=== PATIENT | female | born 1975 | race Hispanic/Latino ===

== ENCOUNTER 2018-12-04 12:37 | Emergency (ER) | payer OTHER ==
[2018-12-04] MEDS ORDERED: IPRATROPIUM/ALBUTEROL SULFATE 3 ML SOLUTION IH ONE (13:14)
[2018-12-04] MEDS ORDERED: DEXAMETHASONE SOD PHOSPHATE 10MG/ML 1ML VIAL ONE (14:53)
[2018-12-04] MEDS ORDERED: KETOROLAC TROMETHAMINE 30MG/ML ONE (14:53)
[2018-12-04] MEDS ORDERED: CYCLOBENZAPRINE HCL 10 MG TABLET ONE (16:08)
[2018-12-04] MEDS ORDERED: ACETAMINOPHEN 325 MG TAB ONE (16:08)
== END 2018-12-04 16:41 | disposition home or self-care (01) ==
LOC: EDH 12:37
DX: S29.9XXA Unspecified injury of thorax, initial encounter (principal); R07.89 Other chest pain; E78.5 Hyperlipidemia, unspecified; Z90.89 Acquired absence of other organs; Z98.890 Other specified postprocedural states; Z72.0 Tobacco use; V49.49XA Driver injured in collision with other motor vehicles in traffic accident, initial encounter; Y93.89 Activity, other specified; Y92.410 Unspecified street and highway as the place of occurrence of the external cause; Y99.8 Other external cause status
CPT/HCPCS: 70450; 71250; 72125; 73090; 74176; 81025; 94640; 99285; J1100; J1885